=== PATIENT | male | born 1960 | race Caucasian/White ===

== ENCOUNTER 2019-01-07 19:29 | Inpatient (IN) | payer MEDICAID ==
[~2019-01-07] VITALS: Ht 185.4 cm; Wt 100.8 kg
--- NOTE | 2019-01-07 19:54 | NUR ---
DR WHITE UPDATED OF PT AND THAT VSS, BUT ARM APPEARS VERY INFECTED. VERBAL RECEIVED FOR SEPSIS PROTOCOL
[2019-01-07 20:25] LABS: BASOPHILS # (AUTO) 0.1 X10'3 (0-0.2); BASOPHILS % (AUTO) 0.5 % (0-1); EOSINOPHILS # (AUTO) 0.2 X10'3 (0-0.9); EOSINOPHILS % (AUTO) 1.6 % (0-6); HEMATOCRIT 44.2 % (42.0-52.0); HEMOGLOBIN 14.8 g/dl (14.0-17.9); LYMPHOCYTES # (AUTO) 1.3 X10'3 (1.1-4.8); LYMPHOCYTES % (AUTO) 10.3 % (21-51); MEAN CORPUSCULAR HEMOGLOBIN 30.5 PG (27.0-31.0); MEAN CORPUSCULAR HGB CONC 33.4 g/dL (33.0-36.5); MEAN CORPUSCULAR VOLUME 91.4 FL (78-98); MEAN PLATELET VOLUME 7.3 FL (7.4-10.4); MONOCYTES # (AUTO) 0.9 X10'3 (0-0.9); MONOCYTES % (AUTO) 7.2 % (2-12); NEUTROPHILS # (AUTO) 10.2 X10'3 (1.8-7.7); NEUTROPHILS % (AUTO) 80.4 % (42-75); PLATELET COUNT 301 X10'3 (140-440); RED BLOOD COUNT 4.84 X10'6 (4.70-6.10); RED CELL DISTRIBUTION WIDTH 13.2 % (11.5-14.5); WHITE BLOOD COUNT 12.7 X10'3 (4.5-11.0)
[2019-01-07 20:39] LABS: ALANINE AMINOTRANSFERASE 42 U/L (12-78); ALBUMIN 3.3 G/DL (3.4-5.0); ALBUMIN/GLOBULIN RATIO 0.9 (1.1-1.5); ALKALINE PHOSPHATASE 91 IU/L (46-116); ANION GAP 10 (8-16); ASPARTATE AMINO TRANSFERASE 32 U/L (10-37); BILIRUBIN,TOTAL 1.2 MG/DL (0.1-1.0); BLOOD UREA NITROGEN 24 MG/DL (7-18); BUN/CREATININE RATIO 18.8 (5.4-32.0); CALCIUM 8.9 MG/DL (8.5-10.1); CHLORIDE 104 MMOL/L (99-107); CREATININE 1.28 MG/DL (0.60-1.10); GLUCOSE 100 MG/DL (70-104); POTASSIUM 3.8 MMOL/L (3.5-5.1); SODIUM 140 MMOL/L (135-145); TOTAL CARBON DIOXIDE 25.9 MMOL/L (24-32); TOTAL PROTEIN 6.9 G/DL (6.4-8.2); eGFR 58 ML/MIN
[2019-01-07 21:09] LABS: PARTIAL THROMBOPLASTIN TIME 25 SECONDS (22-32)
[2019-01-07] MEDS ORDERED: CefTRIAXone/D5W-Rocephin 1gm 50 ML IV ONE (21:15)
[2019-01-07] MEDS ORDERED: vancomycin/NS 1 GM ADD-VANTAGE 250 ML IV ONE (21:15)
[2019-01-07] MEDS ORDERED: acetaminophen 325mg tablet PO PRN ×2 (21:25)
[2019-01-07] MEDS ORDERED: magnesium hydroxide 30ml (MOM) UD suspension PO PRN (21:25)
[2019-01-07] MEDS ORDERED: HYDROcodone/acetaminophen 5mg/325mg tablet PO PRN (21:25)
[2019-01-07] MEDS ORDERED: HYDROcodone/acetaminophen 10/325mg tab PO PRN (21:25)
[2019-01-07] MEDS ORDERED: mag hydrox/Alum hydrox/simeth 30ml oral suspension PO PRN (21:25)
[2019-01-07] MEDS ORDERED: ondansetron/PF 4mg/2ml inj IV PRN (21:25)
--- NOTE | 2019-01-07 21:40 | NUR ---
ENTERED PT ROOM TO CHECK ON PT, PT STATED HE WAS FEELING "GE HARD TO BREATHE, AND I'M COUGHING ALOT WHICH IS WEIRD. I JUST CAN'T CATCH MY BREATH." PT APPEARED FLUSHED, AUSCULTATED WHEEZES. ROCEPHIN MEDICATION STOPPED AND MD HURTADO NOTIFIED. RECEIVED NEW ORDERS FOR BENADRYL, BREATHING TX, AND SOLUMEDROL. WILL CONTINUE TO MONITOR PT FOR FURTHER ADVERSE EFFECTS.
[2019-01-07] MEDS ORDERED: methylPREDNISolone sod succ 125mg/2ml vial IV ONE (21:45)
[2019-01-07] MEDS ORDERED: ipratropium/albuterol 3ml nebule NEB ONE (21:45)
[2019-01-07] MEDS ORDERED: diphenhydrAMINE 50 mg/ml inj IV ONE (21:45)
[2019-01-07] MEDS: normal saline 1000ml 1,000 ML IV SCH (21:56)
--- NOTE | 2019-01-07 22:00 | NUR ---
PT RECEIVED MEDICATIONS AND STATES "I FEEL MUCH BETTER NOW. NO MORE COUGHING. I CAN BREATHE AGAIN." MD HURTADO MADE AWARE. WILL CONTINUE TO MONITOR.
--- NOTE | 2019-01-07 22:30 | NUR ---
ATTEMPT TO COMPLETE MED RECONCILLIATION, PT UNSURE OF WHAT MEDICATIONS HE TAKES AT HOME. NO EXTERNAL MED HX.
[2019-01-07 22:37] LABS: CLARITY,URINE CLEAR (Clear); COLOR,URINE YELLOW (Yellow); GLUCOSE, URINE NEGATIVE (Neg); KETONES,URINE 15 mg/dl (Neg); LEUKOCYTE ESTERASE ,URINE NEGATIVE (Neg); NITRITES, URINE NEGATIVE (Neg); OCCULT BLOOD,URINE NEGATIVE (Neg); PROTEIN,URINE NEGATIVE (Neg); UROBILINOGEN,URINE 0.2 E.U/dL (0.2-1.0)
[2019-01-07 22:38] LABS: UA COLLECTION TYPE CLN CATCH MIDSTREAM
[2019-01-07] MEDS ORDERED: VANCOmycin 1250MG/NS 250ml Bag 250 ML IV SCH (23:00)
[2019-01-07 23:30] VITALS: BP 141/75
[2019-01-08] MEDS: piperacillin/tazo 4.5gm/100ml 100 ML IV SCH ×3 (01:51→16:24)
[2019-01-08 06:31] VITALS: BP 138/89
--- NOTE | 2019-01-08 06:51 | NUR ---
Patient in room ORTHO 4020. I have received report from Yarely CONNOR and had the opportunity to ask questions and assume patient care.
[2019-01-08 06:55] LABS: BASOPHILS % (AUTO) 0.1 % (0-1); EOSINOPHILS % (AUTO) 0.1 % (0-6); HEMATOCRIT 45.9 % (42.0-52.0); HEMOGLOBIN 15.5 g/dl (14.0-17.9); LYMPHOCYTES # (AUTO) 0.4 X10'3 (1.1-4.8); LYMPHOCYTES % (AUTO) 4.2 % (21-51); MEAN CORPUSCULAR HEMOGLOBIN 31.2 PG (27.0-31.0); MEAN CORPUSCULAR HGB CONC 33.8 g/dL (33.0-36.5); MEAN CORPUSCULAR VOLUME 92.3 FL (78-98); MEAN PLATELET VOLUME 7.8 FL (7.4-10.4); MONOCYTES # (AUTO) 0.1 X10'3 (0-0.9); MONOCYTES % (AUTO) 0.8 % (2-12); NEUTROPHILS # (AUTO) 8.1 X10'3 (1.8-7.7); NEUTROPHILS % (AUTO) 94.8 % (42-75); PLATELET COUNT 281 X10'3 (140-440); RED BLOOD COUNT 4.97 X10'6 (4.70-6.10); RED CELL DISTRIBUTION WIDTH 13.5 % (11.5-14.5); WHITE BLOOD COUNT 8.5 X10'3 (4.5-11.0)
[2019-01-08 07:07] LABS: ALBUMIN 2.9 G/DL (3.4-5.0); ANION GAP 10 (8-16); BLOOD UREA NITROGEN 20 MG/DL (7-18); BUN/CREATININE RATIO 18.5 (5.4-32.0); CALCIUM 8.5 MG/DL (8.5-10.1); CHLORIDE 105 MMOL/L (99-107); CREATININE 1.08 MG/DL (0.60-1.10); GLUCOSE 135 MG/DL (70-104); POTASSIUM 4.2 MMOL/L (3.5-5.1); SODIUM 140 MMOL/L (135-145); TOTAL CARBON DIOXIDE 25.2 MMOL/L (24-32); eGFR 70 ML/MIN
[2019-01-08] MEDS: normal saline 1000ml 1,000 ML IV SCH ×2 (07:23→17:23)
[2019-01-08] MEDS ORDERED: vancomycin/NS 1 GM ADD-VANTAGE 250 ML IV SCH (08:00)
[2019-01-08] MEDS ORDERED: CefTRIAXone/D5W-Rocephin 1gm 50 ML IV SCH (08:00)
[2019-01-08] MEDS ORDERED: enoxaparin 40mg/0.4ml syringe SQ SCH (08:00)
[2019-01-08] MEDS: enoxaparin 40mg/0.4ml syringe SUBCUT SCH (08:33)
[2019-01-08 09:41] VITALS: BP 141/89
[2019-01-08] MEDS ORDERED: QUET50TA PO (11:36)
[2019-01-08] MEDS ORDERED: CHOL500050 PO (11:37)
[2019-01-08] MEDS ORDERED: DULO-31 PO (11:38)
[2019-01-08] MEDS ORDERED: iohexol 300mg/ml 100ml inj. ONE (16:27)
[2019-01-08 18:00] VITALS: BP 128/75
--- NOTE | 2019-01-08 18:15 | NUR ---
Problems reprioritized. Patient report given, questions answered & plan of care reviewed with Jay CONNOR.
[2019-01-08] MEDS: lactobacillus rhamnosus 10,000 MMU CELLS/CAPSULE PO SCH (19:44)
[2019-01-08 22:01] VITALS: BP 115/65
[2019-01-09] MEDS: piperacillin/tazo 4.5gm/100ml 100 ML IV SCH ×2 (00:38→07:37)
[2019-01-09] MEDS: normal saline 1000ml 1,000 ML IV SCH ×2 (03:23→13:23)
[2019-01-09 06:00] VITALS: BP 132/80
[2019-01-09 06:33] LABS: BASOPHILS # (AUTO) 0.1 X10'3 (0-0.2); BASOPHILS % (AUTO) 0.6 % (0-1); EOSINOPHILS # (AUTO) 0.1 X10'3 (0-0.9); EOSINOPHILS % (AUTO) 1.2 % (0-6); HEMATOCRIT 42.3 % (42.0-52.0); HEMOGLOBIN 14.3 g/dl (14.0-17.9); LYMPHOCYTES # (AUTO) 1.5 X10'3 (1.1-4.8); LYMPHOCYTES % (AUTO) 15.8 % (21-51); MEAN CORPUSCULAR HEMOGLOBIN 31.4 PG (27.0-31.0); MEAN CORPUSCULAR HGB CONC 33.7 g/dL (33.0-36.5); MEAN CORPUSCULAR VOLUME 93.2 FL (78-98); MEAN PLATELET VOLUME 7.2 FL (7.4-10.4); MONOCYTES # (AUTO) 0.7 X10'3 (0-0.9); MONOCYTES % (AUTO) 7.2 % (2-12); NEUTROPHILS # (AUTO) 6.9 X10'3 (1.8-7.7); NEUTROPHILS % (AUTO) 75.2 % (42-75); PLATELET COUNT 291 X10'3 (140-440); RED BLOOD COUNT 4.54 X10'6 (4.70-6.10); RED CELL DISTRIBUTION WIDTH 13.4 % (11.5-14.5); WHITE BLOOD COUNT 9.2 X10'3 (4.5-11.0)
[2019-01-09 06:43] LABS: ALBUMIN 2.5 G/DL (3.4-5.0); ANION GAP 6 (8-16); BLOOD UREA NITROGEN 15 MG/DL (7-18); BUN/CREATININE RATIO 12.8 (5.4-32.0); CHLORIDE 108 MMOL/L (99-107); CREATININE 1.17 MG/DL (0.60-1.10); GLUCOSE 100 MG/DL (70-104); POTASSIUM 3.8 MMOL/L (3.5-5.1); SODIUM 143 MMOL/L (135-145); TOTAL CARBON DIOXIDE 29.2 MMOL/L (24-32); eGFR 64 ML/MIN
--- NOTE | 2019-01-09 06:44 | NUR ---
Patient in room ORTHO 4020. I have received report from Jay CONNOR and had the opportunity to ask questions and assume patient care.
--- NOTE | 2019-01-09 07:29 | NUR ---
[facility] hospitalist [phone] positive MRSA in left arm drainage, placed patient on contact precautions, will continue to monitor
[2019-01-09] MEDS: lactobacillus rhamnosus 10,000 MMU CELLS/CAPSULE PO SCH (07:38)
[2019-01-09] MEDS: enoxaparin 40mg/0.4ml syringe SUBCUT SCH (07:38)
[2019-01-09 09:43] VITALS: BP 136/75
[2019-01-09] MEDS ORDERED: SULF1TAB49 PO (14:27)
--- NOTE | 2019-01-09 15:08 | NUR ---
Patient refused photo Addendum: 01/09/19 at 1508 by Kee Palmer RN Amended: Links added.
--- NOTE | 2019-01-09 15:34 | NUR ---
Patient discharged to home with all belongings, new rx called into pharmacy, patient stable upon discharge
--- NOTE | 2019-01-09 15:48 | NUR ---
Patient refused dc wound picture Addendum: 01/09/19 at 1548 by Kee Palmer RN Amended: Links added.
[2019-01-09] MEDS ORDERED: VANCOMYCIN LEVEL IV ONE (22:30)
== END 2019-01-09 15:15 | disposition home or self-care (01) | DRG 383 ==
LOC: ER 19:30 → ORTHO 4S 01-08 00:10 → CMPBEDREQ 01-08 00:59
PROVIDERS: ADMIT Hospitalist; ATTEND Family Medicine
PROC: BP2K1ZZ Computerized Tomography (CT Scan) of Left Forearm using Low Osmolar Contrast (ICD-10-PCS; principal; 2019-01-08)
PROC: BP2 Imaging, Non-Axial Upper Bones, Computerized Tomography (CT Scan) (ICD-10-PCS; 2019-01-08)
PROC: BP2P1ZZ Computerized Tomography (CT Scan) of Left Hand using Low Osmolar Contrast (ICD-10-PCS; 2019-01-08)
DX: L03.114 Cellulitis of left upper limb (principal); N17.9 Acute kidney failure, unspecified; B95.62 Methicillin resistant Staphylococcus aureus infection as the cause of diseases classified elsewhere; F32.9 Major depressive disorder, single episode, unspecified; N18.9 Chronic kidney disease, unspecified; Z88.8 Allergy status to other drugs, medicaments and biological substances
CPT/HCPCS: 36415; 71045; 73201; 80048; 80053; 81003; 83605; 84145; 85025; 85610; 85730; 87040; 87070; 87077; 87081; 87186; 94640; 94760; 96365; 96375; 99285; G0378; J0696; J1200; J1650; J2543; J2930; J3370; J7030; Q9967

== ENCOUNTER 2021-03-24 21:48 | Emergency (ER) | payer MEDICAID ==
[~2021-03-24] VITALS: Ht 185.4 cm; Wt 104.5 kg
[~2021-03-24 21:48] MED LIST: CHOL500050 PO; DULO-31 PO; QUET50TA PO
[2021-03-24 21:55] VITALS: BP 136/98
== END 2021-03-25 01:21 | disposition left against medical advice (07) ==
LOC: ER 21:49
DX: Z00.8 Encounter for other general examination (principal); R21 Rash and other nonspecific skin eruption; Z53.21 Procedure and treatment not carried out due to patient leaving prior to being seen by health care provider

== ENCOUNTER 2024-06-01 12:54 | Outpatient (CLI) | payer MEDICARE, MEDICAID | END 2024-06-01 23:59 | disposition home or self-care (01) | LOC: MRI 12:54 | PROVIDERS: ATTEND Specialist | DX: S46.111A Strain of muscle, fascia and tendon of long head of biceps, right arm, initial encounter (principal); M25.511 Pain in right shoulder; X58.XXXA Exposure to other specified factors, initial encounter; Y93.89 Activity, other specified; Y92.89 Other specified places as the place of occurrence of the external cause; Y99.8 Other external cause status | CPT/HCPCS: 73218 ==